=== PATIENT | male | born 1965 | race Caucasian/White ===

== ENCOUNTER → 2024-01-01 | Outpatient (CLI) | payer BC ==
--- NOTE | 2024-01-01 11:10 | XR ---
EXAMINATION TYPE: XR wrist complete LT DATE OF EXAM: 01/01/2024 10:44 AM CLINICAL INDICATION: Male, 58 years old with history of [id number] LT WRIST PAIN; [facility] COMPARISON: None TECHNIQUE: XR wrist complete LT; examined in the Frontal, navicular, lateral, and oblique. FINDINGS: No acute osseous pathology, joint dislocation, or joint effusion. No evidence of any soft tissue swelling is seen. No multifocal degeneration changes. Gapping of scapholunate interval measuri ng up to 7 mm. IMPRESSION: 1. Gapping of scapholunate interval. Correlate for ligamentous injury consider MRI. 2. No evidence of fracture. 3. Mild multifocal degeneration. [facility], , 01/01/2024 11:07 AM
== END | disposition home or self-care (01) ==
LOC: RADXRYALE 10:33
PROVIDERS: ATTEND Physician Assistant
DX: M19.032 Primary osteoarthritis, left wrist (principal)